=== PATIENT | female | born 1965 | race Caucasian/White ===

== ENCOUNTER → 2016-11-16 | Outpatient (CLI) | payer BC ==
--- NOTE | 2016-11-17 09:56 | MM ---
Reason for exam: screening (asymptomatic). Last mammogram was performed 1 year and 1 month ago. Physical Findings: A clinical breast exam by your physician is recommended on an annual basis and results should be correlated with mammographic findings. MG Screening Mammo w CAD Bilateral CC and MLO view(s) were taken. Prior study comparison: October 14, 2015, bilateral MG screening mammo w CAD. October 08, 2014, bilateral MG screening mammo w CAD. October 02, 2013, bilateral digital screening mammo w/CAD. The breast tissue is heterogeneously dense. This may lower the sensitivity of mammography. Asymmetric breast tissue in the left breast stable from 2013. There is no discrete abnormality. ASSESSMENT: Negative, BI-RAD 1 RECOMMENDATION: Routine screening mammogram of both breasts in 1 year.
== END | disposition home or self-care (01) ==
LOC: RADMAMWWP 10:57
PROVIDERS: ATTEND Family Medicine
DX: Z12.31 Encounter for screening mammogram for malignant neoplasm of breast (principal)

== ENCOUNTER → 2017-12-31 | Outpatient (CLI) | payer BC | END | disposition home or self-care (01) | LOC: LABWHC1 14:23 | PROVIDERS: ATTEND Nurse Practitioner | DX: R07.89 Other chest pain (principal) | CPT/HCPCS: 36415; 84484 ==

== ENCOUNTER → 2020-07-03 | Outpatient (CLI) | payer BC ==
--- NOTE | 2020-07-04 08:13 | MM ---
Reason for exam: screening (asymptomatic). Last mammogram was performed 1 year and 5 months ago. History: Patient is postmenopausal. Took hormonal contraceptives for 6 months. Physical Findings: A clinical breast exam by your physician is recommended on an annual basis and results should be correlated with mammographic findings. MG Screening Mammo w CAD Bilateral CC and MLO view(s) were taken. Prior study comparison: January 18, 2019, bilateral MG screening mammo w CAD. November 16, 2016, bilateral MG screening mammo w CAD. The breast tissue is heterogeneously dense. This may lower the sensitivity of mammography. There is no discrete abnormality. Asymmetric breast tissue left medial anterior breast, stable. There is no discrete abnormality. ASSESSMENT: Negative, BI-RAD 1 RECOMMENDATION: Routine screening mammogram of both breasts in 1 year.
== END | disposition home or self-care (01) ==
LOC: RADMAMWWP 12:57
PROVIDERS: ATTEND Family Medicine
DX: Z12.31 Encounter for screening mammogram for malignant neoplasm of breast (principal)
CPT/HCPCS: 77067

== ENCOUNTER → 2022-05-01 | Outpatient (CLI) | payer OTHER, MEDICARE ==
--- NOTE | 2022-05-01 10:10 | XR ---
Left shoulder HISTORY: Pain 3 views of left shoulder There is marginal spurring, hypertrophic change, subchondral sclerosis and possible geode formation w ith joint space loss of the glenohumeral joint. Bone mineralization is reduced. Alignment is maintain ed. No fracture or dislocation. Left lung apex as visualized is normal. IMPRESSION: Osteoarthritic changes.
--- NOTE | 2022-05-04 08:30 | MM ---
Reason for Exam: Screening (asymptomatic). Last mammogram was performed 1 year(s) and 10 month(s) ago. Patient History: Menarche at age 11. First Full-Term at age 17. Postmenopausal. Hormonal Contraceptives for 6 months. Risk Values: Ludy 5 year model risk: 1.0%. NCI Lifetime model risk: 5.5%. Prior Study Comparison: 11/16/2016 Bilateral Screening Mammogram, [facility]. 01/18/2019 Bilateral Screening Mammogram, [facility]. 07/03/2020 Bilateral Screening Mammogram, [facility]. Tissue Density: The breast tissue is heterogeneously dense. This may lower the sensitivity of mammography. Findings: Analyzed By CAD. There is no suspicious group of microcalcifications in either breast. Stable bilateral chronic nodularity. Asymmetry demonstrated within the inferior right breast middle depth on the MLO view. Overall Assessment: Incomplete: need additional imaging evaluation, BI-RAD 0 Management: Diagnostic Mammogram of the right breast. A clinical breast exam by your physician is recommended on an annual basis and results should be correlated with mammographic findings. [facility] will attempt to contact patient to return for supplemental views and ultrasound if indicated. Electronically signed and approved by: Rob Garcia D.O.
== END ==
LOC: RADMAMWWP 07:52
PROVIDERS: ATTEND Family Medicine
DX: Z12.31 Encounter for screening mammogram for malignant neoplasm of breast (principal)
CPT/HCPCS: 77067

== ENCOUNTER → 2022-05-08 | Outpatient (CLI) | payer MEDICARE, OTHER ==
--- NOTE | 2022-05-08 10:49 | MM ---
Reason for Exam: Additional evaluation requested from abnormal screening. Last screening mammogram was performed less than 1 month ago. Patient History: Menarche at age 11. First Full-Term at age 17. Hysterectomy at age 49. Postmenopausal. Hormonal Contraceptives for 6 months. Risk Values: Ludy 5 year model risk: 1.0%. NCI Lifetime model risk: 5.5%. Prior Study Comparison: 09/26/2012 Bilateral Screening Mammogram, [facility]. 10/02/2013 Bilateral Screening Mammogram, [facility]. 10/08/2014 Bilateral Screening Mammogram, [facility]. 10/14/2015 Bilateral Screening Mammogram, [facility]. 11/16/2016 Bilateral Screening Mammogram, [facility]. 01/18/2019 Bilateral Screening Mammogram, [facility]. 07/03/2020 Bilateral Screening Mammogram, [facility]. 05/01/2022 Bilateral MG screening mammo w CAD, [facility]. Tissue Density: Right: The breast tissue is heterogeneously dense. This may lower the sensitivity of mammography. Findings: Analyzed By CAD. Mass of concern is reproduced in the right breast middle to posterior depth 9 cm from the nipple measuring 7 mm in the medial lower quadrant. Overall Assessment: Incomplete: need additional imaging evaluation, BI-RAD 0 Management: Diagnostic Breast Ultrasound of the right breast. A clinical breast exam by your physician is recommended on an annual basis and results should be correlated with mammographic findings. This exam should not preclude additional follow-up of suspicious palpable abnormalities. Results were given to the patient verbally at the time of exam. Electronically signed and approved by: Leroy Summers DO
--- NOTE | 2022-05-08 11:51 | USB ---
Reason for Exam: Additional evaluation requested from abnormal screening. Patient History: Menarche at age 11. First Full-Term at age 17. Hysterectomy at age 49. Postmenopausal. Hormonal Contraceptives for 6 months. Risk Values: Ludy 5 year model risk: 1.0%. NCI Lifetime model risk: 5.5%. Prior Study Comparison: 01/18/2019 Bilateral Screening Mammogram, [facility]. 07/03/2020 Bilateral Screening Mammogram, [facility]. 05/01/2022 Bilateral MG screening mammo w CAD, [facility]. Findings: The right inner breast was scanned along with retroareolar regions. No evidence of mass to correlate mammographic findings.. Overall Assessment: Negative, BI-RAD 1 Management: Screening Mammogram of both breasts in 1 year. A clinical breast exam by your physician is recommended on an annual basis and results should be correlated with mammographic findings. This exam should not preclude additional follow-up of suspicious palpable abnormalities. ??Results were given to the patient verbally at the time of exam. Electronically signed and approved by: Leroy Summers,
== END | disposition home or self-care (01) ==
LOC: RADMAMWWP 10:16
PROVIDERS: ATTEND Family Medicine
DX: R92.8 Other abnormal and inconclusive findings on diagnostic imaging of breast (principal)
CPT/HCPCS: 77065; 76642; G0279; 77061

== ENCOUNTER → 2023-05-10 | Outpatient (CLI) | payer MEDICARE, OTHER ==
--- NOTE | 2023-05-11 12:00 | MM ---
Reason for Exam: Screening (asymptomatic). Last screening mammogram was performed 12 month(s) ago. Patient History: Menarche at age 11. First Full-Term at age 17. Hysterectomy at age 49. Postmenopausal. Hormonal Contraceptives for 6 months. Risk Values: Ludy 5 year model risk: 1.0%. NCI Lifetime model risk: 5.3%. Prior Study Comparison: 10/14/2015 Bilateral Screening Mammogram, [facility]. 11/16/2016 Bilateral Screening Mammogram, [facility]. 01/18/2019 Bilateral Screening Mammogram, [facility]. 07/03/2020 Bilateral Screening Mammogram, [facility]. 05/01/2022 Bilateral MG screening mammo w CAD, [facility]. 05/08/2022 Right MG 3D work up w/cad RT, [facility]. Tissue Density: There are scattered fibroglandular densities. Findings: Analyzed By CAD. There is no suspicious group of microcalcifications or new suspicious mass in either breast. Overall Assessment: Negative, BI-RAD 1 Management: Screening Mammogram of both breasts in 1 year. . Patient should continue monthly self-breast exams. A clinical breast exam by your physician is recommended on an annual basis. This exam should not preclude additional follow-up of suspicious palpable abnormalities. Note on Ludy scores and lifetime risk: 1. A Ludy score greater than 3% is considered moderate risk. If this is the case, consider specialist referral to assess eligibility for a risk reducing agent. 2. If overall lifetime risk for the development of breast cancer is 20% or higher, the patient may qualify for future screening with alternating mammogram and breast MRI. Electronically signed and approved by: Obinna Mcgovern M.D. Radiologis
== END | disposition home or self-care (01) ==
LOC: RADMAMWWP 13:45
PROVIDERS: ATTEND Family Medicine
DX: Z12.31 Encounter for screening mammogram for malignant neoplasm of breast (principal); Z78.0 Asymptomatic menopausal state
CPT/HCPCS: 77063; 77067

== ENCOUNTER → 2024-05-11 | Outpatient (CLI) | payer MEDICARE, OTHER ==
--- NOTE | 2024-05-12 08:40 | MM ---
Reason for Exam: Screening (asymptomatic). Last screening mammogram was performed 12 month(s) ago. Patient History: Menarche at age 11. First Full-Term at age 17. Hysterectomy at age 49. Postmenopausal. Hormonal Contraceptives for 6 months. Risk Values: Ludy 5 year model risk: 1.1%. NCI Lifetime model risk: 5.2%. Prior Study Comparison: 10/14/2015 Bilateral Screening Mammogram, [facility]. 11/16/2016 Bilateral Screening Mammogram, [facility]. 01/18/2019 Bilateral Screening Mammogram, [facility]. 07/03/2020 Bilateral Screening Mammogram, [facility]. 05/01/2022 Bilateral MG screening mammo w CAD, [facility]. 05/08/2022 Right MG 3D work up w/cad RT, [facility]. 05/10/2023 Bilateral MG 3D screening mammo w/cad, [facility]. Tissue Density: There are scattered areas of fibroglandular density. Findings: Analyzed By CAD. There is no suspicious group of microcalcifications or new suspicious mass in either breast. Overall Assessment: Negative, BI-RAD 1 Management: Screening Mammogram of both breasts in 1 year. . Patient should continue monthly self-breast exams. A clinical breast exam by your physician is recommended on an annual basis. This exam should not preclude additional follow-up of suspicious palpable abnormalities. Note on Ludy scores and lifetime risk: 1. A Ludy score greater than 3% is considered moderate risk. If this is the case, consider specialist referral to assess eligibility for a risk reducing agent. 2. If overall lifetime risk for the development of breast cancer is 20% or higher, the patient may qualify for future screening with alternating mammogram and breast MRI. [facility], , 05/12/2024 8:37 AM. Electronically signed and approved by: Obinna Mcgovern M.D. Radiologis
== END | disposition home or self-care (01) ==
LOC: RADMAMWWP 09:28
PROVIDERS: ATTEND Family Medicine
CPT/HCPCS: 77063; 77067